=== PATIENT | female | born 1955 | race African-American/Black ===

== ENCOUNTER → 2016-09-27 | Outpatient (CLI) | payer OTHER ==
[~2016-09-27] MED LIST: ALBI1INJ2 SQ; ASPI81CH37 CHEW; ATOR40TA16 PO; CLON0.1T PO; METO50TA PO; MULT1CHW70 PO; NITR50VP SL; PLAV75TA29 PO
[2016-09-27 13:38] LABS: BLOOD GAS BASE EXCESS 0.4 mmol/L (-2-2); BLOOD GAS CARBOXYHEMOGLOBIN 0.9 % (0-4); BLOOD GAS HCO3 24 mmol/L (22-26); BLOOD GAS METHEMOGLOBIN 1.2 % (0-2); BLOOD GAS O2 HGB SATURATION 96 % (90-100); BLOOD GAS OXYGEN CONTENT 15.5 Vol % (12.0-20.0); BLOOD GAS PCO2 39 mmHg (38-42); BLOOD GAS PO2 107 mmHg (61-120); BLOOD GAS TOTAL HGB 11.4 G/DL (12.0-16.0); TEMP CORR TO 98.6
[2016-09-27 13:39] LABS: CRITICAL VALUE NO; DRAW SITE RT RADIAL; FIO2 21 %; NUMBER OF ARTERIAL PUNCTURES 1; STAT NO; ULNAR PULSE PRESENT
--- NOTE | 2016-10-01 11:25 | RSPPFT ---
DATE OF PROCEDURE: 09/27/16 COMMENTS: Spirometry with FVC of 2.5 predicted 2.9, FEV1 of 2.0 predicted 2.3, FEV1/FVC ratio 82% predicted 83%. Lung volumes show a minimal decline in TLC, RV and FRC implying minimal restrictive lung defect. IMPRESSION:
== END ==
LOC: HRSP 11:56
PROVIDERS: ATTEND Internal Medicine Pulmonary Disease
DX: R06.02 Shortness of breath (principal)
CPT/HCPCS: 36600; 82805; 94060; 94620; 94726; 94729